=== PATIENT | female | born 1965 | race Caucasian/White ===

== ENCOUNTER 2016-11-06 13:23 | Observation (INO) | payer BC ==
--- NOTE | 2016-11-06 13:26 | PDOC ---
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 She states that she initially did not make anything of it, but when she had a second episode, she decided to present for evaluation. Denies SOB, leg swelling, N/V. Pain radiates to neck, but not to the arms. She had similar symptoms once before, in the setting of a febrile illness she had 1 year ago, involving months of fever. Her symptoms resolved a year ago with steroids, but a diagnosis was never clear. <Raina Bruce - Last Filed: 11/13/16 07:37> - General Chief Complaint: Chest Pain Stated Complaint: CHEST PAIN Time Seen by Provider: 11/06/16 13:26 Past History <Juan Ramon Cancino - Last Filed: 11/06/16 20:45> <Raina Bruce - Last Filed: 11/13/16 07:37> - Past Medical History Allergies/Adverse Reactions: Allergies Allergy/AdvReac Type Severity Reaction Status Date / Time No Known Allergies Allergy Verified 11/06/16 13:24 Home Medications: Ambulatory Orders NK [No Known Home Medication] 11/06/16 Review of Systems - Review of Systems Able to Perform ROS?: Yes Comments:: GENERAL/CONSTITUTIONAL: No fever or chills. No weakness. HEAD, EYES, EARS, NOSE AND THROAT: No change in vision. No ear pain or discharge. No sore throat. CARDIOVASCULAR: +Chest pain. No shortness of breath. RESPIRATORY: No cough, wheezing, or hemoptysis. GASTROINTESTINAL: No nausea, vomiting, diarrhea or constipation. GENITOURINARY: No dysuria, frequency, or change in urination. MUSCULOSKELETAL: No joint or muscle swelling or pain. No neck or back pain. SKIN: No rash NEUROLOGIC: No headache, vertigo, loss of consciousness, or change in strength/ sensation. ENDOCRINE: No increased thirst. No abnormal weight change. HEMATOLOGIC/LYMPHATIC: No anemia, easy bleeding, or history of blood clots. ALLERGIC/IMMUNOLOGIC: No hives or skin allergy. <Raina Bruce - Last Filed: 11/13/16 07:37> *Physical Exam - Vital Signs Last Vital Signs Temp Pulse Resp BP Pulse Ox 98.2 F 77 18 101/62 99 11/06/16 20:42 11/06/16 20:42 11/06/16 20:42 11/06/16 20:42 11/06/16 20:42 <BarakJuan Ramon - Last Filed: 11/06/16 20:45> - Physical Exam Comments: GENERAL: Awake, alert, and fully oriented, in no acute distress. Mildly anxious. HEAD: No signs of trauma EYES: PERRLA, EOMI, sclera anicteric, conjunctiva clear ENT: Auricles normal inspection, hearing grossly normal, nares patent, oropharynx clear without exudates. Moist mucosa NECK: Normal ROM, supple, no lymphadenopathy, JVD, or masses LUNGS: Breath sounds equal, clear to auscultation bilaterally. No wheezes, and no crackles HEART: Regular rate and rhythm, normal S1 and S2, no murmurs, rubs or gallops ABDOMEN: Soft, nontender, normoactive bowel sounds. No guarding, no rebound. No masses EXTREMITIES: Normal range of motion, no edema. No clubbing or cyanosis. No cords, erythema, or tenderness NEUROLOGICAL: Cranial nerves II through XII grossly intact. Normal speech, normal gait SKIN: Warm, Dry, normal turgor, no rashes or lesions noted. <Raina Bruce - Last Filed: 11/13/16 07:37> Heart Score/ECG Review - History History: Moderately suspicious - Electrocardiogram EKG: Normal - Age Age: 45-65 - Risk Factors Risk Factors Heart Score: Yes Positive family hx of cardiac disease, Yes Hx Obesity Based on the list above the patient has:: 1-2 risk factors - Troponin Troponin: </= normal limit - Score Heart Score - Total: 3 - ECG Impressions Comment:: EKG read 13:33- NSR 67 bpm, no acute ST/T changes. <Raina Bruce - Last Filed: 11/13/16 07:37> ED Treatment Course - LABORATORY CBC & Chemistry Diagram: 11/06/16 14:00 11/06/16 14:00 - ADDITIONAL ORDERS Additional order review: Laboratory Results 11/06/16 11/06/16 11/06/16 19:20 14:00 13:58 Sodium 140 Potassium 3.8 Chloride 105 Carbon Dioxide 26 Anion Gap 9 BUN 12 Creatinine 0.6 Creat Clearance w eGFR > 60 Random Glucose 91 Calcium 9.4 Total Bilirubin 0.2 AST 18 ALT 26 Alkaline Phosphatase 66 Creatine Kinase 48 52 Troponin I < 0.03 L < 0.03 L Total Protein 7.1 Albumin 4.1 Lipase 23 11/06/16 14:00 RBC 4.60 MCV 86.2 MCHC 32.0 RDW 14.2 MPV 8.8 Neutrophils % 61.6 Lymphocytes % 30.7 Monocytes % 5.1 Eosinophils % 2.1 Basophils % 0.5 - Medications Given in the ED: ED Medications Discontinued Medications Generic Name Dose Route Start Last Admin Trade Name Freq PRN Reason Stop Dose Admin Aspirin 162 mg 11/06/16 13:54 11/06/16 14:04 Asa - PO 11/06/16 13:55 162 mg ONCE ONE Administration <Juan Ramon Cancino - Last Filed: 11/06/16 20:45> - LABORATORY CBC & Chemistry Diagram: 11/07/16 07:00 11/07/16 03:00 <Raina Bruce - Last Filed: 11/13/16 07:37> Medical Decision Making - Medical Decision Making 11/06/16 20:45 Call made for to , case discussed. <Juan Ramon Cancino - Last Filed: 11/06/16 20:45> - Medical Decision Making 11/06/16 19:[address] Rudolph for admission. Initial plan was for 2 CE in ED, however, patient continued to have episodes of cp during her ED stay. She has significant concerns about the long drive home to [place], given how the symptoms started. We discussed, and in light of multiple episodes of this chest pressure, will place on obs for cardio evaluation. <Raina Bruce - Last Filed: 11/13/16 07:37> *DC/Admit/Observation/Transfer <Juan Ramon Cancino - Last Filed: 11/06/16 20:45> - Discharge Dispostion Admit: Yes <Raina Bruce - Last Filed: 11/13/16 07:37> Diagnosis at time of Disposition: Chest pain Qualifiers: Chest pain type: unspecified Qualified Code(s): R07.9 - Chest pain, unspecified - Discharge Dispostion Disposition: HOME Condition at time of disposition: Stable - Patient Instructions
[2016-11-06 13:39] VITALS: BMI 39.9
[2016-11-06] MEDS ORDERED: ASPIRIN 81 MG CHEWABLE TABLETS PO ONE (13:54)
[2016-11-06] MEDS ORDERED: ASPIRIN 81 MG CHEWABLE TABLETS ONE (14:05)
[2016-11-06 14:23] LABS: BASOPHIL 0.5 % (0-2.0); EOSINOPHIL 2.1 % (0-4.5); MCH 27.6 pg (25.7-33.7); MEAN CELL VOLUME 86.2 fl (80-96); MEAN PLT VOLUME 8.8 fl (7.5-11.1); NEUTROPHILS 61.6 % (42.8-82.8); PLATELET COUNT 271 K/MM3 (134-434); RDW 14.2 % (11.6-15.6); WHITE BLOOD COUNT 6.5 K/mm3 (4.0-10.0)
[2016-11-06 14:35] LABS: CPK(DFH) 52 IU/L (26-140)
[2016-11-06 14:37] LABS: ALBUMIN 4.1 g/dl (3.5-5.0); ALK PHOS 66 U/L (32-92); ANION GAP 9 (8-16); BILIRUBIN,TOTAL 0.2 mg/dl (0.2-1.0); CALCIUM 9.4 mg/dl (8.4-10.2); CO2 26 mmol/L (22-28); CREATININE 0.6 mg/dl (0.6-1.3); GLUCOSE,RANDOM 91 mg/dl (74-106); SGOT/AST 18 U/L (10-42); SGPT/ALT 26 U/L (10-40); TOT PROT 7.1 g/dl (6.4-8.3)
[2016-11-06 15:08] LABS: TROPONIN I (DFP) < 0.03 ng/ml (0.03-0.50)
--- NOTE | 2016-11-06 16:06 | EKG ---
Test Reason : Blood Pressure : / mmHG Vent. Rate : 067 BPM Atrial Rate : 067 BPM P-R Int : 176 ms QRS Dur : 096 ms QT Int : 382 ms P-R-T Axes : 043 016 028 degrees QTc Int : 403 ms NORMAL SINUS RHYTHM NORMAL ECG NO PREVIOUS ECGS AVAILABLE Confirmed by LIANE KABA MD ([id number]) on 11/06/2016 4:06:00 PM Referred By: DORY HERRMANN Confirmed By:LIANE KABA MD
[2016-11-06 19:46] LABS: CPK(DFH) 48 IU/L (26-140)
[2016-11-06 20:08] LABS: TROPONIN I (DFP) < 0.03 ng/ml (0.03-0.50)
[2016-11-06] MEDS ORDERED: ACETAMINOPHEN 325 MG TABLET (FP) PO PRN (21:02)
--- NOTE | 2016-11-06 21:07 | HP ---
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 She states that she initially did not make anything of it, but when she had a second episode, she decided to present for evaluation. Denies SOB, leg swelling, N/V. Pain radiates to neck, but not to the arms. She had similar symptoms once before, in the setting of a febrile illness.stress test in the past wnl. pt hasa crdiologist in [facility] h/o gerd and anxiety - Past Medical History Gastrointestinal: Yes: GERD Psych: Yes: Anxiety - Smoking History Smoking history: Never smoked Have you smoked in the past 12 months: No - Alcohol/Substance Use Hx Alcohol Use: No Home Medications - Allergies Allergies/Adverse Reactions: Allergies Allergy/AdvReac Type Severity Reaction Status Date / Time No Known Allergies Allergy Verified 11/06/16 13:24 - Home Medications Home Medications: Ambulatory Orders NK [No Known Home Medication] 11/06/16 Review of Systems - Review of Systems Cardiovascular: reports: Chest Pain Physical Examination Vital Signs: Vital Signs Temperature 98.2 F 11/06/16 20:42 Pulse Rate 77 11/06/16 20:42 Respiratory Rate 18 11/06/16 20:42 Blood Pressure 101/62 11/06/16 20:42 O2 Sat by Pulse Oximetry (%) 99 11/06/16 20:42 Constitutional: Yes: No Distress HENT: Yes: Atraumatic, Other (rash on cheeks) Neck: Yes: Supple Cardiovascular: Yes: Regular Rate and Rhythm Respiratory: Yes: CTA Bilaterally Gastrointestinal: Yes: Normal Bowel Sounds Extremities: Yes: WNL Neurological: Yes: Alert, Oriented Imaging - Results X-ray: Report Reviewed Problem List - Problems (1) Chest pain Code(s): R07.9 - CHEST PAIN, UNSPECIFIED Qualifiers: Chest pain type: unspecified Qualified Code(s): R07.9 - Chest pain, unspecified Assessment/Plan Laboratory Results - last 24 hr 11/06/16 11/06/16 11/06/16 13:58 14:00 14:00 WBC 6.5 RBC 4.60 Hgb 12.7 Hct 39.6 MCV 86.2 MCHC 32.0 RDW 14.2 Plt Count 271 MPV 8.8 Neutrophils % 61.6 Lymphocytes % 30.7 Monocytes % 5.1 Eosinophils % 2.1 Basophils % 0.5 Sodium 140 Potassium 3.8 Chloride 105 Carbon Dioxide 26 Anion Gap 9 BUN 12 Creatinine 0.6 Creat Clearance w eGFR > 60 Random Glucose 91 Calcium 9.4 Total Bilirubin 0.2 AST 18 ALT 26 Alkaline Phosphatase 66 Creatine Kinase 52 Troponin I < 0.03 L Total Protein 7.1 Albumin 4.1 Lipase 23 11/06/16 19:20 WBC RBC Hgb Hct MCV MCHC RDW Plt Count MPV Neutrophils % Lymphocytes % Monocytes % Eosinophils % Basophils % Sodium Potassium Chloride Carbon Dioxide Anion Gap BUN Creatinine Creat Clearance w eGFR Random Glucose Calcium Total Bilirubin AST ALT Alkaline Phosphatase Creatine Kinase 48 Troponin I < 0.03 L Total Protein Albumin Lipase Active Medications Generic Name Dose Route Start Last Admin Trade Name Freq PRN Reason Stop Dose Admin Acetaminophen 650 mg 11/06/16 21:02 Tylenol - PO Q6H PRN FEVER OR PAIN 1.chest pain admit for obs fu cardiac enzymes ekg/echo cardiology consult 2.gerd will put her on protonix dvt ppx
[2016-11-06] MEDS: PANTOPRAZOLE 40 MG TABLET (FP) PO SCH (21:57)
[2016-11-07 05:57] LABS: TROPONIN I < 0.02 ng/ml (0.00-0.05)
[2016-11-07 06:01] LABS: ALBUMIN 3.6 g/dl (3.4-5.0); ANION GAP 9 (8-16); BILIRUBIN,TOTAL 0.3 mg/dL (0.2-1.0); CALCIUM 8.7 mg/dL (8.5-10.1); CO2 27 mmol/L (21-32); CREATININE 0.7 mg/dL (0.55-1.02); GLUCOSE,RANDOM 85 mg/dL (74-106); SGOT/AST 13 U/L (15-37); SGPT/ALT 31 U/L (12-78); TOT PROT 6.8 g/dl (6.4-8.2)
[2016-11-07 06:02] LABS: ALK PHOS 74 U/L (45-117)
[2016-11-07 06:39] VITALS: BP 115/40; PULSE 75; TEMP 98.2
[2016-11-07 08:18] LABS: BASOPHIL 0.5 % (0-2.0); MCHC 33.7 g/dl (32.0-36.0); MEAN CELL VOLUME 86.1 fl (80-96); MEAN PLT VOLUME 9.3 fl (7.5-11.1); PLATELET COUNT 302 K/MM3 (134-434); RDW 13.8 % (11.6-15.6); WHITE BLOOD COUNT 6.5 K/mm3 (4.0-10.0)
--- NOTE | 2016-11-07 08:54 | CON.CARD ---
Consult Consult Specialty:: Cardiology Referred by:: Dr. Rudolph Reason for Consultation:: Chest pain - History of Present Illness Chief Complaint: Chest pain History of Present Illness: 51 yo female with GERD who was admitted yesterday for observation for chest pain. Patient reports that she was having a very stressful day yesterday when she developed pressurelike chest discomfort while sitting in a [employer] car with her daughter. The chest pain lasted for 15-20 minutes before spontaneously resolving. Denied any associated nausea or dyspnea. She went to her in-laws home and was brought to [place] for further evaluation. ECG did not demonstrate any ischemic ECG changes and trops (-) x3. CXR was normal. She reports that she underwent extensive cardiac evaluation this past year with 2 echocardiograms which were unremarkable per patient's report, and a reportedly normal nuclear stress test this past February. - History Source History Provided By: Patient Limitations to Obtaining History: No Limitations - Past Medical History Gastrointestinal: Yes: GERD Psych: Yes: Anxiety - Alcohol/Substance Use Hx Alcohol Use: No History of Substance Use: reports: None - Smoking History Smoking history: Never smoked Have you smoked in the past 12 months: No Home Medications - Allergies Allergies/Adverse Reactions: Allergies Allergy/AdvReac Type Severity Reaction Status Date / Time No Known Allergies Allergy Verified 11/06/16 13:24 - Home Medications Home Medications: Ambulatory Orders NK [No Known Home Medication] 11/06/16 Family Disease History - Family Disease History Family History: Denies (premature CAD or sudden cardiac ) Review of Systems - Review of Systems Constitutional: reports: No Symptoms Eyes: reports: No Symptoms HENT: reports: No Symptoms Neck: reports: No Symptoms Cardiovascular: reports: Chest Pain. denies: Palpitations, Shortness of Breath Respiratory: reports: No Symptoms Gastrointestinal: reports: No Symptoms Genitourinary: reports: No Symptoms Musculoskeletal: reports: No Symptoms Neurological: reports: No Symptoms Endocrine: reports: No Symptoms Hematology/Lymphatic: reports: No Symptoms Psychiatric: reports: No Symptoms Vital Signs: Vital Signs Temperature 98.2 F 11/07/16 06:38 Pulse Rate 75 11/07/16 06:38 Respiratory Rate 18 11/07/16 08:49 Blood Pressure 115/40 11/07/16 06:38 O2 Sat by Pulse Oximetry (%) 97 11/07/16 08:49 Constitutional: Yes: Well Nourished, No Distress Eyes: Yes: Conjunctiva Clear, EOM Intact HENT: Yes: Atraumatic, Normocephalic Respiratory: Yes: CTA Bilaterally Gastrointestinal: Yes: Normal Bowel Sounds, Soft. No: Tenderness Cardiovascular: Yes: Regular Rate and Rhythm JVD: No Carotid Bruit: No Murmur: No: Systolic Murmur Musculoskeletal: Yes: WNL Extremities: Yes: WNL Edema: Yes Peripheral Pulses WNL: Yes Neurological: Yes: Alert, Oriented, Cran Nerves II-XII Intact ...Motor Strength: WNL Psychiatric: Yes: WNL - Other Data Labs, Other Data: CBC, BMP 11/07/16 07:00 11/07/16 03:00 11/06/16 ECG: Sinus rhythm Imaging - Results Chest X-ray: Report Reviewed (11/06/16: Normal study) Assessment/Plan 51 yo female with GERD who was admitted yesterday for observation for chest pain. No ischemic ECG changes and trops (-) x3. CXR was normal. Patient reports 2 echocardiograms which were unremarkable per patient's report in the past year, and a reportedly normal nuclear stress test this past February. Suspect that patient had esophageal spasm. 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 If patient continues to have recurrent symptoms, may consider outpatient cardiac cath to definitively rule out obstructive CAD. Will see prn. Please call with questions.
[2016-11-07] MEDS: PANTOPRAZOLE 40 MG TABLET (FP) PO SCH (10:00)
--- NOTE | 2016-11-07 11:30 | DS ---
Physical Examination Vital Signs: Vital Signs Temperature 98.2 F 11/07/16 06:38 Pulse Rate 75 11/07/16 06:38 Respiratory Rate 18 11/07/16 08:49 Blood Pressure 115/40 11/07/16 06:38 O2 Sat by Pulse Oximetry (%) 97 11/07/16 08:49 Constitutional: Yes: No Distress Neck: Yes: Supple Cardiovascular: Yes: Regular Rate and Rhythm Respiratory: Yes: CTA Bilaterally Gastrointestinal: Yes: Normal Bowel Sounds Extremities: Yes: WNL Neurological: Yes: Alert, Oriented Labs: CBC, BMP 11/07/16 07:00 11/07/16 03:00 Discharge Summary Reason For Visit: CHEST PAIN Current Active Problems Chest pain (Acute) Condition: Stable - Instructions Diet, Activity, Other Instructions: Follow up with your denture waxer in 1-2 weeks. Disposition: HOME - Home Medications Comprehensive Discharge Medication List: Ambulatory Orders NK [No Known Home Medication] 11/06/16 stable dc home fu with her own cardiology
== END 2016-11-07 11:36 | disposition home or self-care (01) ==
LOC: FER 13:23 → FM/S 20:42
PROVIDERS: ADMIT Internal Medicine; ATTEND Internal Medicine
DX: R07.89 Other chest pain (principal); K21.9 Gastro-esophageal reflux disease without esophagitis; F41.8 Other specified anxiety disorders
CPT/HCPCS: 36415; 71010-TC; 80053; 82550; 83690; 84484; 85025; 93005; 99285-25; G0378